=== PATIENT | male | born 1985 ===

== ENCOUNTER 2023-06-15 18:00 | Outpatient (CLI) | payer BC | END 2023-06-15 18:01 | disposition home or self-care (01) | LOC: SLEEPLAB 18:00 | PROVIDERS: ATTEND Internal Medicine | DX: G47.33 Obstructive sleep apnea (adult) (pediatric) (principal); G47.30 Sleep apnea, unspecified | CPT/HCPCS: 95800 ==

== ENCOUNTER 2023-08-02 17:00 | Outpatient (CLI) | payer BC | END 2023-08-02 17:01 | disposition home or self-care (01) | LOC: SLEEPLAB 17:00 | PROVIDERS: ATTEND Internal Medicine | DX: G47.33 Obstructive sleep apnea (adult) (pediatric) (principal); G47.61 Periodic limb movement disorder | CPT/HCPCS: 95811 ==